=== PATIENT | female | born 1960 | race Caucasian/White ===

== ENCOUNTER → 2017-04-22 | Outpatient (CLI) | payer BC ==
[~2017-04-22] MED LIST: HYDR-34 PO; HYDR-3730 PO
--- NOTE | 2017-04-22 10:04 | Diagnostic Imaging Report ---
PA and lateral views of the chest. INDICATION: Cough. No prior studies are available for comparison. FINDINGS: The lungs are mildly hyperinflated. There is minimal left basilar atelectasis or scarring. No focal airspace consolidation. The heart size is normal. No effusion or pneumothorax. Mediastinum and hortensia appear unremarkable. IMPRESSION: Hyperinflated lungs with minimal focal left basilar atelectasis or scarring. Dictated by: Dictated on workstation # [id number]
== END ==
LOC: RAD 09:38
PROVIDERS: ATTEND Nurse Practitioner Family
DX: R05 Cough (principal)
CPT/HCPCS: 71020

== ENCOUNTER → 2017-07-24 | Outpatient (REF) ==
--- NOTE | 2017-07-24 16:16 | Diagnostic Imaging Report ---
INDICATION: Fall two weeks ago with axillary pain. EXAMINATION: Multiple views of the left ribs were obtained. FINDINGS: There is a minimally displaced fracture of the left fifth rib, laterally. This is unhealed but there may be some parosteal reaction and while its precise acuity is unclear, its appearance would be consistent with an injury having been sustained two weeks earlier. Less convincing but likely findings of fractures of the sixth and seventh ribs, nondisplaced. There is mild left basilar partial atelectasis. No evidence for hemothorax or pneumothorax and no findings felt suggestive of a lung contusion. IMPRESSION: Fractured left fifth rib and likely nondisplaced injuries of the sixth and seventh ribs, laterally, without evidence for pulmonary parenchymal or pleural injury. Mild basilar atelectasis. Dictated by: Dictated on workstation # [id number]
== END | disposition home or self-care (01) ==
LOC: OCC 15:09
PROVIDERS: ATTEND Nurse Practitioner Family
CPT/HCPCS: 71100

== ENCOUNTER → 2017-08-14 | Outpatient (REF) ==
--- NOTE | 2017-08-14 14:33 | Diagnostic Imaging Report ---
INDICATION: Injury to left hand. AP, oblique, lateral views of left hand are obtained. There are mild degenerative change of the first carpal metacarpal joint and MCP joint. There is no acute fracture or acute bony abnormality. There are degenerative changes of the interphalangeal joints. There is no lytic or blastic lesion. IMPRESSION: Degenerative findings as described above with no acute bony abnormality. Dictated by: Dictated on workstation # [id number]
== END | disposition home or self-care (01) ==
LOC: OCC 14:06
PROVIDERS: ATTEND Nurse Practitioner Family
CPT/HCPCS: 73130

== ENCOUNTER 2018-02-22 21:13 | Emergency (ER) | payer BC ==
[~2018-02-22] VITALS: Ht 160 cm; Wt 65.8 kg
--- NOTE | 2018-02-22 21:30 | ED Lower Extremity ---
General Chief Complaint: Lower Extremity Stated Complaint: L FOOT PAIN Source: patient Exam Limitations: no limitations History of Present Illness Date Seen by Provider: Feb 22, 2018 Time Seen by Provider: 21:16 Initial Comments The patient presents to the ER by private conveyance with chief complaint that around noon she was carrying groceries and dropped a can of beans on her left foot above the first metatarsal. She is having quite a bit of pain and is difficult to walk. She's had a history of surgeries to the ligament of her left foot arch times one from Dr. jacobsen in [facility]. She is having a lot of pain when walking and since she works for [employer] she was concerned might be a fracture and she wants it examined. She's used ice but she does not want any Tylenol or Motrin. Allergies and Home Medications Allergies Coded Allergies: No Known Drug Allergies (Unverified , 01/06/14) Home Medications No Active Prescriptions or Reported Meds Patient Home Medication List Home Medication List Reviewed: Yes Constitutional: No chills, No diaphoresis, No fever EENTM: No ear pain, No blurred vision Respiratory: No cough, No phlegm Past Ggupvet-Kcfmyc-Ixnaaj Hx Patient Social History Alcohol Use: Rarely Uses Alcohol Beverage of Choice: Wine Recreational Drug Use: No Smoking Status: Never a Smoker 2nd Hand Smoke Exposure: No Recent Foreign Travel: No Contact w/Someone Who Travel: No Recent Hopitalizations: No Seasonal Allergies Seasonal Allergies: No Past Medical History Surgeries: Yes (ROTATOR CUFF, NOSE SX, HEMORRHOIDECTOMY, FEET BILAT) Respiratory: No Cardiac: No Neurological: No Sexually Transmitted Disease: No HIV/AIDS: No Genitourinary: No Gastrointestinal: No Musculoskeletal: No Endocrine: No HEENT: No Loss of Vision: Denies Hearing Impairment: Denies Cancer: No Psychosocial: No Integumentary: No Blood Disorders: No Adverse Reaction/Blood Tranf: No Physical Exam Vital Signs Vital Signs - First Documented 02/22/18 21:20 Temp 97.8 Pulse 84 Resp 18 B/P (MAP) 150/102 (118) Pulse Ox 99 O2 Delivery Room Air Capillary Refill : General Appearance: WD/WN, no apparent distress Cardiovascular: normal peripheral pulses, regular rate, rhythm, other (normal distal cap refill less than 2 seconds and dorsal pedal and posterior tibial pulses bilateral symmetric 2 out of 4.) Ankles: bilateral ankle non-tender, bilateral ankle normal inspection, bilateral ankle normal range of motion, bilateral ankle no evidence of injury Feet: bilateral foot normal inspection, bilateral foot normal range of motion; right foot no evidence of injury; left foot bone tenderness (distal head of the first metatarsal), left foot pain Progress/Results/Core Measures Results/Orders My Orders Orders - MARILIA CARDENAS Foot, Left, 3 Views (02/22/18 21:25) Vital Signs/I&O 02/22/18 21:20 Temp 97.8 Pulse 84 Resp 18 B/P (MAP) 150/102 (118) Pulse Ox 99 O2 Delivery Room Air Diagnostic Imaging Diagonstic Imaging: Xray Plain Films/CT/US/NM/MRI: other (left foot) Comments No acute osseous abnormalities noted. Reviewed: Reviewed by Me Departure Impression Primary Impression: Contusion of foot Qualified Codes: S90.32XA - Contusion of left foot, initial encounter Disposition: 01 HOME, SELF-CARE Condition: Stable Departure-Patient Inst. Decision time for Depature: 21:49 Referrals: BO HOPPER MD (PCP/Family) Primary Care Physician Patient Instructions: Metatarsalgia (DC) Add. Discharge Instructions: All discharge instructions reviewed with patient and/or family. Voiced understanding. Scripts No Active Prescriptions or Reported Meds Work/School Note: Work Release Form Date Seen in the Emergency Department: Feb 22, 2018 Return to Work: Feb 23, 2018 Restrictions: No Restrictions Copy Copies To 1: BO HOPPER MD, TITUS J Feb 22, 2018 21:30
[2018-02-22 21:59] VITALS: BP 150/102
--- NOTE | 2018-02-22 22:24 | Diagnostic Imaging Report ---
INDICATION: Dropped can on foot with pain.. TECHNIQUE: 3 views of the left foot CORRELATION STUDY: None FINDINGS: The osseous structures of the foot are intact. Joint spaces are maintained. Alignment anatomic. Soft tissues appearing unremarkable. IMPRESSION: 1. Negative for acute findings of the foot. Dictated by: Dictated on workstation # [id number]
== END 2018-02-22 21:59 | disposition home or self-care (01) ==
LOC: EDUNIT# 21:13 → ER 21:14
DX: S90.32XA Contusion of left foot, initial encounter (principal); Z87.81 Personal history of (healed) traumatic fracture; Z98.890 Other specified postprocedural states; W20.8XXA Other cause of strike by thrown, projected or falling object, initial encounter
CPT/HCPCS: 73630

== ENCOUNTER → 2018-04-30 | Outpatient (REF) | payer OTHER, BC ==
--- NOTE | 2018-04-30 13:09 | Diagnostic Imaging Report ---
EXAMINATION: Magnetic resonance imaging of the left shoulder without contrast. DATE: April 30, 2018. COMPARISON: None. HISTORY: 57-year-old female, left shoulder pain. TECHNIQUE: Magnetic Resonance Imaging sequences were performed of the shoulder without contrast. FINDINGS: ROTATOR CUFF, LIGAMENTS, TENDONS, AND MUSCLES: There are anchors in the superior humeral head in the region of the supraspinatus tendon insertion compatible with prior rotator cuff tendon repair. There is no other evidence of failure of the repair. Infraspinatus and teres minor tendons are intact. The subscapularis tendon is intact. There is severe fatty atrophy of the teres minor muscle without identified mass within the quadrilateral space. LONG HEAD OF BICEPS: The biceps labral attachment and long head of the biceps tendon is intact. The long head of the biceps tendon is normally positioned within the bicipital groove. GLENOHUMERAL JOINT: The humeral head is mildly posteriorly subluxed. There are areas of increased signal within the glenohumeral cartilage without definite surface defect which may potentially correlate with chondromalacia. There is no discretely identified labral tear. There is no paralabral cyst. There is no glenohumeral joint effusion. ACROMIOCLAVICULAR JOINT: The acromioclavicular joint is widened likely relating to distal clavicle resection. The coracoclavicular and coracoacromial ligaments are intact. There are no degenerative changes of the acromioclavicular joint. BONE: There is no os acromiale. There is no acute fracture, bone contusion, or evidence of osteonecrosis. BURSAE AND SOFT TISSUES: The bursae and soft tissue surrounding the shoulder are unremarkable. IMPRESSION: 1. Status post rotator cuff tendon repair involving the supraspinatus tendon without evidence of failure of the repair. Negative for rotator cuff tendon tear. 2. Postoperative changes of distal clavicle resection without residual acromioclavicular joint osteophyte. 3. 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 Additional glenohumeral joint evaluation is grossly unremarkable. 4. No acute fracture, bone contusion, or evidence of osteonecrosis. Dictated by: Dictated on workstation # [id number]
== END ==
LOC: RAD 11:53
PROVIDERS: ATTEND Nurse Practitioner Family
DX: G89.18 Other acute postprocedural pain (principal); M25.512 Pain in left shoulder; Z98.890 Other specified postprocedural states
CPT/HCPCS: 73221